=== PATIENT | male | born 1980 | race Caucasian/White ===

== ENCOUNTER 2018-02-15 23:26 | Emergency (ER) | payer SELFPAY ==
[~2018-02-15] VITALS: Ht 172.7 cm; Wt 94.9 kg
[2018-02-15 23:34] VITALS: BP 116/111
--- NOTE | 2018-02-16 01:45 | PHYS DOC ---
Past Medical History Past Medical History: No Pertinent History Past Surgical History: Other Additional Past Surgical Histo: BACK SX Alcohol Use: Occasionally Drug Use: Marijuana Adult General Chief Complaint Chief Complaint: LOWER EXTREMITY EDEMA [facility] 38-year-old male who states that he travels a lot presents with complaint of lower extremity swelling and stating that he feels like his entire body is swelling. He denies any chest pain, shortness of breath or dyspnea on exertion. He states he's been seen recently in [facility] for the same but was unsure what that workup revealed. He states both legs are swollen equally. He denies any lateral leg swelling or pain. He denies any fever chills or sweats. Denies any joint pain but states he does "hurt all over".[] Review of Systems Review of Systems Constitutional: Denies fever or chills [] Eyes: Denies change in visual acuity, redness, or eye pain [] HENT: Denies nasal congestion or sore throat [] Respiratory: Denies cough or shortness of breath [] Cardiovascular: No additional information not addressed in HPI [] GI: Denies abdominal pain, nausea, vomiting, bloody stools or diarrhea [] : Denies dysuria or hematuria [] Musculoskeletal: States he hurts all over. And lower shimmery swelling as described above[] Integument: Denies rash or skin lesions [] Neurologic: Denies headache, focal weakness or sensory changes [] Endocrine: Denies polyuria or polydipsia [] All other systems were reviewed and found to be within normal limits, except as documented in this note. Allergies Allergies Allergies Coded Allergies Type Severity Reaction Last Updated Verified No Known Drug Allergies 02/15/18 No Physical Exam Physical Exam Constitutional: Well developed, well nourished, no acute distress, non-toxic appearance. [] HENT: Normocephalic, atraumatic, bilateral external ears normal, oropharynx moist, no oral exudates, nose normal. [] Eyes: PERRLA, EOMI, conjunctiva normal, no discharge. [] Neck: Normal range of motion, no tenderness, supple, no stridor. [] Cardiovascular:Heart rate regular rhythm, no murmur [] Lungs & Thorax: Bilateral breath sounds clear to auscultation [] Abdomen: Bowel sounds normal, soft, no tenderness, no masses, no pulsatile masses. [] Skin: Warm, dry, no erythema, no rash. [] Back: No tenderness, no CVA tenderness. [] Extremities: Trace lower extremity edema swelling or tenderness. Distal pulses[ ] Neurologic: Alert and oriented X 3, normal motor function, normal sensory function, no focal deficits noted. [] Psychologic: He has an angry affect. [] Current Patient Data Vital Signs Vital Signs Date Time Temp Pulse Resp B/P (MAP) Pulse Ox O2 Delivery O2 Flow Rate FiO2 02/15/18 23:34 98.2 96 18 116/111 (113) 97 Room Air 98.2 EKG EKG [] Radiology/Procedures Radiology/Procedures [] Course & Med Decision Making Course & Med Decision Making Pertinent Labs and Imaging studies reviewed. (See chart for details) [ED course: Evaluation reveals a 38-year-old male with some trace lower extremity edema. I feel like the likelihood that this is vertical in nature is very low given the fact that he has no shortness of breath or dyspnea on exertion. Patient refused any blood work stating that he had laboratory studies done in [facility] recently. He then told the nurse that it's easier to get pills off the street that it is in the hospital. I suspect that this was drug seeking behavior.] Dragon Disclaimer Dragon Disclaimer This electronic medical record was generated, in whole or in part, using a voice recognition dictation system. Departure Departure Impression: Primary Impression: Lower extremity edema Additional Impression: Drug-seeking behavior Disposition: 07 AGAINST MEDICAL ADVICE Condition: STABLE Referrals: NO PCP (PCP) Patient Instructions: Peripheral Edema Additional Instructions: He'll need to follow with her primary care physician for further evaluation. Return to the emergency department with any new or concerning symptoms Problem Qualifiers BERNA STEWART DO Feb 16, 2018 01:45
== END 2018-02-16 01:01 | disposition left against medical advice (07) ==
LOC: ER 23:26
DX: R60.0 Localized edema (principal); Z76.5 Malingerer [conscious simulation]
CPT/HCPCS: 99281